=== PATIENT | female | born 1935 | race Caucasian/White ===

== ENCOUNTER 2017-09-16 12:50 | Emergency (ER) | payer OTHER, MEDICAID ==
[2017-09-16 13:05] VITALS: RESP 16; TEMP 97.7; O2SAT 96
--- NOTE | 2017-09-16 13:05 | EDPHY ---
H & P Time Seen by Provider: 09/16/17 13:00 HPI/ROS: HPI: This is an 82-year-old female who presents with Chief Complaint: Left wrist or hand injury Location: Left wrist hand Quality: Injury Duration: Yesterday Signs and Symptoms: No bleeding, no radiation, no numbness, no weakness, no tingling, + swelling, + decreased range of motion Timing: Sudden Severity: Moderate Context: Patient [facility] via [facility] a [facility] for us suspect a left wrist or hand injury. If she fall she is unable to get up unassisted from floor so the daughter believes that she may have slammed her left hand or wrist into the door going to the bathroom. Injury occurred yesterday and per the daughter x-rays were obtained showing and ulnar fracture she believes. They did not splint her. The daughter noted more bruising and swelling today. Does not take any blood thinners. Patient history of moderate dementia. Modifying Factors: Given Liberty prior to arrival Comment: ROS: see HPI Constitutional: No fever, no chills, no weight loss Eyes: No blurred vision Respiratory: No shortness of breath, no cough Cardiovascular: No chest pain Gastrointestinal: No nausea, no vomiting no diarrhea Genitourinary: No dysuria Extremities: No myalgias Neurologic: No weakness, no numbness Skin: No rashes Hematologic: No bruising, no bleeding MEDICAL/SURGICAL/SOCIAL HISTORY: Medical history: Osteoporosis, dementia, coronary artery disease Surgical history: unknown Social history: Lives in a [facility] CONSTITUTIONAL: Pleasantly confused sitting up in the ER stretcher elderly white female, awake and alert, no obvious distress HEENT: Atraumatic and normocephalic, PERRL, EOMI. Tympanic membranes clear. Oropharynx clear, no exudate and moist pink mucosa. Airway patent. No lymphadenopathy. No meningismus. Cardiovascular: Normal S1/S2, regular rate, regular rhythm, without murmur rub or gallop. PULMONARY/CHEST: Symmetrical and nontender. Clear to auscultation bilaterally. Good air movement. No accessory muscle usage. ABDOMEN: Soft, nondistended, nontender, no rebound, no guarding, no peritoneal signs, no masses or organomegaly. No CVAT. EXTREMITIES: 2/2 pulses, left WRIST: FROM MCP TO MID FOREARM ECCHYMOSIS A PURPLISH IN COLOR NOTED. Reluctant to move wrist at all; Extension to 20, flexion to 20, radial deviation to 10 degree, ulnar deviation to 10, no scaphoid tenderness, tenderness over ulnar styloid, tenderness over radial styloid, no clubbing, no cyanosis or edema. Able to wiggle all 5 fingers. Light touch sensation intact. NEUROLOGICAL: no focal neuro deficits. Alert to self and daughter only. SKIN: Warm and dry, no erythema. no rash. Good capillary refill. Source: Patient Exam Limitations: Clinical condition (dementia) - Personal History Tetanus Vaccine Date: 2005 Constitutional: Initial Vital Signs Temperature (C) 36.5 C 09/16/17 13:00 Heart Rate 75 09/16/17 13:00 Respiratory Rate 16 09/16/17 13:00 Blood Pressure 121/62 H 09/16/17 13:00 O2 Sat (%) 96 09/16/17 13:00 O2 Delivery Mode Room Air Allergies/Adverse Reactions: No Allergies [NKDA] Allergy (Verified 04/07/12 11:03) Home Medications: Medication Instructions Recorded Acetaminophen [Tylenol 325 mg tab 325 mg PO Q4 PRN 04/07/12 (OTC)] Calcium Carbonate [Calcium Carb 1,200 mg PO BID 04/07/12 Oral Liquid (OTC)] Cholecalciferol Vit D3 [Vitamin D 2,000 units PO DAILY 04/07/12 2000 units (OTC)] Cyanocobalamin (Vitamin B-12) 1,000 mcg PO DAILY 04/07/12 [Vitamin B-12] Flaxseed Oil [Flax Seed Oil] 1,000 mg PO DAILY 04/07/12 Ibuprofen [Motrin 200 mg (OTC)] 400 mg PO Q4H PRN 04/07/12 Magnesium Citrate [Magnesium 600 mg PO BID 04/07/12 Citrate 200 mg] Niacin [Niacin 500 mg (OTC)] 500 mg PO BID 04/07/12 Pharmacy Completed 04/07/12 04/07/12 Calcium Carb Oral Liquid [Calcium 1,200 mg PO BID 04/09/12 Carb Oral Liquid (RX)] Vitamin B3 500 mg PO BID 04/09/12 Medical Decision Making - Diagnostics Imaging Results: Imaging Impressions Hand X-Ray 09/16/17 13:00 Impression: 1. Dorsally angulated Colles' fracture. 2. Low bone density. This patient might benefit from a DEXA scan. 2. Left Hand, Three Views History: Pain post trauma. Fall. Findings: There is diffuse low bone density. No fracture of the hand or malalignment is identified. The Colles' fracture is confirmed. Impression: Colles' fracture of the wrist. Nothing acute identified in the hand. Wrist X-Ray 09/16/17 13:00 Impression: 1. Dorsally angulated Colles' fracture. 2. Low bone density. This patient might benefit from a DEXA scan. 2. Left Hand, Three Views History: Pain post trauma. Fall. Findings: There is diffuse low bone density. No fracture of the hand or malalignment is identified. The Colles' fracture is confirmed. Impression: Colles' fracture of the wrist. Nothing acute identified in the hand. Procedures: Procedure: Splint placement. A left volar splint and sling was applied by the Emergency Room document image technician. After application of the splint I returned and re-examined the patient. The splint was adequately immobilizing the joint and distal to the splint the patient's circulation and sensation was intact. ED Course/Re-evaluation: Left hand and wrist x-ray ordered Fall presumed mechanical in nature Pain controlled upon arrival is given Liberty by [facility] X-rays reviewed via PACs and my read show distal radial fracture as well as ulnar styloid fracture. Placed in appropriate anatomic position and then volar splint and sling Advised rice therapy, pain control, Ortho follow-up No signs of neurovascular compromise/tenting of skin/compartment syndrome/ extremities and joints examined above and below area of concern and are neurovascularly intact. Daughter at bedside relates that patient already has a prescription for a Liberty due to her history of compression fractures in the past and advises that she does not need a new prescription for pain medications. Differential Diagnosis: Differential diagnosis includes fracture, dislocation, contusion, sprain, nerve injury, ligament injury. Departure - Departure Disposition: Home, Routine, Self-Care Clinical Impression: Displaced fracture of left ulna styloid process, initial encounter for closed fracture Fracture of left distal radius Qualifiers: Encounter type: initial encounter Fracture type: closed Fracture morphology: Georgina' Qualified Code(s): S52.532A - Colles' fracture of left radius, initial encounter for closed fracture Fracture, farheen Erickson, closed Qualifiers: Encounter type: initial encounter Qualified Code(s): S52.532A - Colles' fracture of left radius, initial encounter for closed fracture Condition: Good Instructions: Wrist Fracture in Adults (ED) Additional Instructions: Keep the splint dry and in place until seen by Orthopedics. Wear sling for comfort. Take Liberty every 4 hours as needed for pain. Apply ice for 30 minutes at a time; 2-3 times per day for the next 1-2 days. Follow up with Orthopedics in 3-5 days at which time they will evaluate and recommend with you if conservative management versus surgery is indicated. Referrals: Tyshawn Crews MD [Medical Doctor] - As per Instructions
[2017-09-16 15:35] VITALS: BP 140/86; PULSE 85
== END 2017-09-16 15:34 | disposition home or self-care (01) ==
LOC: EDUNIT#
DX: S52.612A Displaced fracture of left ulna styloid process, initial encounter for closed fracture (principal); S52.532A Colles' fracture of left radius, initial encounter for closed fracture; I25.10 Atherosclerotic heart disease of native coronary artery without angina pectoris; W23.0XXA Caught, crushed, jammed, or pinched between moving objects, initial encounter; Y99.8 Other external cause status
CPT/HCPCS: 73110; 73130; 99283; A4565